=== PATIENT | male | born 2000 | race Caucasian/White ===

== ENCOUNTER 2021-09-20 09:29 | Emergency (ER) | payer OTHER, SELFPAY ==
[2021-09-20] VITALS (15 sets, daily range): BP systolic 128–146; BP diastolic 71–97; PULSE 73–131; RESP 11–24; TEMP 36.7; O2SAT 90–100
--- NOTE | ~2021-09-20 | XR_ITS ---
EXAMINATION: XR chest 1V portable DATE: 09/20/2021 11:01 INDICATION: Cough and congestion. Asthma. TECHNIQUE: A single frontal view of the chest was obtained on 2 radiographs. COMPARISON: Chest 2 views 11/05/2017 FINDINGS: The chest demonstrates clear lungs without pneumonia, pleural effusion, or pneumothorax. Th e heart size is normal. Pneumomediastinum is noted. IMPRESSION: 1. Pneumomediastinum. Reviewed, dictated and finalized at location A. ING CONSULTANT IMPRESSION: 1. Pneumomediastinum.
--- NOTE | 2021-09-20 09:58 | ECG_ITS ---
Measurements Intervals [place] Rate: 79 P: 73 SD: 136 QRS: -27 QRSD: 114 T: 42 QT: 361 QTc: 414 Interpretive Statements SINUS RHYTHM WITH MARKED SINUS ARRHYTHMIA INTRAVENTRICULAR CONDUCTION DELAY MINIMAL Q WAVES- INFERIOR LEADS BASELINE ARTIFACT- I, II, III, AVR, AVF, V1-V6 BORDERLINE ECG Electronically Signed On 09-20-2021 16:29:35 HIGH [employer]CHOOL GUIDANCE COUNSELOR by Demetrius Ashraf D.O.
--- NOTE | 2021-09-20 10:31 | ED.ASTHMA ---
HPI - Asthma General Chief Complaint: Asthma Stated Complaint: sob Time Seen by Provider: 09/20/21 10:15 Source: patient Mode of arrival: ambulatory Limitations: no limitations History of Present Illness HPI Narrative: This is a 21 year old male that presents to the ER for asthma exacerbation ongoing over the last couple of days. Reports cough, wheezing, shortness of breath and congestion. He was tested yesterday for coronavirus and it was negative. He has received 1 dose of the Covid vaccine. He is not currently on any preventative inhaled corticosteroid. He has been having to use his albuterol inhaler frequently without relief. His primary also started him on prednisone yesterday without relief. Denies fever or chest pain. Related Data Allergies Allergy/AdvReac Type Severity Reaction Status Date / Time Penicillins Allergy Hives Verified 09/20/21 09:55 Review of Systems Review of Systems: CONSTITUTIONAL: Denies fever ENT: Reports congestion. Denies sore throat CARDIOVASCULAR: Denies chest pain, or edema. RESPIRATORY: Reports cough and dyspnea. All systems reviewed & are unremarkable except as noted in HPI and below PMFSH Past Medical History Medical History (Updated 09/20/21 @ 12:15 by Sindi Johnson PA-C) History of asthma Social History Social History (Updated 09/20/21 @ 10:36 by Sindi Johnson PA-C) Smoking status: Never smoker Exam Narrative: GENERAL: Well-appearing, well-nourished, and in no acute distress. HEAD: Normocephalic, atraumatic. EYES: EOMI. ENT: Nares clear, no rhinorrhea or epistaxis. Mucous membranes moist. Oropharynx without tonsillar hypertrophy exudate or other lesions. Bilateral TMs pearly oneill non-bulging NECK: Supple. No adenopathy or masses. CHEST: No respiratory distress. Lung sounds diminished bilaterally with diffuse wheezing. No rales or rhonchi HEART: Regular rate and rhythm. No murmur heard. Normal peripheral pulses. EXTREMITIES: Normal range of motion. No edema. SKIN: Warm, dry, no rash. NEURO: No focal deficits. Alert and oriented x3. PSYCH: Normal mood and affect Course Consultations Consultation #1: Spoke with Dr. Bryson about patient and work-up. Patient will be transferred to [facility] for further evaluation and management Date: 09/20/21 Time: 12:00 Vital Signs Vital signs: Vital Signs Temperature 98.1 F 09/20/21 09:30 Pulse Rate 107 H 09/20/21 09:30 Respiratory Rate 24 H 09/20/21 09:30 Blood Pressure 146/71 H 09/20/21 09:30 Pulse Oximetry 91 09/20/21 09:30 Temperature 98.1 F 09/20/21 09:30 Pulse Rate 131 H 09/20/21 12:24 Respiratory Rate 23 H 09/20/21 12:24 Blood Pressure 136/97 H 09/20/21 12:24 Pulse Oximetry 90 09/20/21 13:02 MDM - Asthma MDM Narrative Medical decision making narrative: This is a 21-year-old male that presents to the emergency department for asthma exacerbation ongoing over the last couple of days. He is afebrile and nontoxic-appearing. Mildly tachycardic upon arrival. Oxygen saturation is remained normal on room air. Diffuse wheezing and diminished breath sounds noted on exam. Patient given hour-long nebulizer treatment, magnesium and steroid with improvement. Leukocytosis is noted to 17.2, likely due to recent steroid use. Patient did have a negative Covid and influenza screen yesterday. Chest x-ray shows a pneumomediastinum. EKG shows sinus tachycardia with sinus arrhythmia. Patient and family updated on case findings. Reports patient has a fresh work inspector at [facility] for his history of A. fib. Spoke with Dr. Bryson (patient's fresh work inspector) about patient and work-up. Patient will be transferred to [facility] for further evaluation and management Patient was eventually placed on 2L NC as his oxygen saturation was in the low 90s on room air Lab Data Attestation: I reviewed the patient's lab results. Result diagrams: 09/20/21 11:52 09/20/21 11:52 Labs: Lab Results
[2021-09-20] MEDS: ALBUTEROL SULFATE NEB 2.5 MG/0.5 ML INH 15 MG INHALATION (10:39)
[2021-09-20] MEDS: IPRATROPIUM BR 0.02% INH SOLN 0.5 MG/2.5 ML VIAL 1.5 MG INHALATION (10:39)
[2021-09-20] MEDS: methylPREDNISolone SOD SUCC 125 MG VIAL IV PUSH (10:43)
[2021-09-20] MEDS: MAGNESIUM SULF 2 GM/WATER 50ML 2 GM/50 ML BAG IVPB (10:46)
--- NOTE | 2021-09-20 10:58 | PC.NURSE ---
Patient states he was was influenza swabbed yesterday and was negative. Per KELSEY Delong, no retest needed.
[2021-09-20 11:59] LABS: Basophils Percent Auto 0.2 % (0.2-1.2); Eosinophils Percent Auto 0.1 % (0-4.4); Hematocrit 43.3 % (42.0-52.0); Hemoglobin 14.3 g/dL (14.0-18.0); Immature Granulocyte Absolute 0.06 K/mm3 (0.00-0.031); Immature Granulocyte Percent A 0.3 % (0-0.5); Lymphocytes Absolute Auto 0.94 K/mm3 (0.9-3.2); Lymphocytes Percent Auto 5.5 % (18.3-44.2); Mean Corpuscular Hemoglobin 29.6 pg (26-34); Mean Corpuscular Volume 89.6 fl (80-100); Mean Platelet Volume 10.8 fl (7.4-10.4); Monocytes Absolute Auto 0.6 K/mm3 (0.1-0.6); Monocytes Percent Auto 3.2 % (2.6-8.5); Neutrophils Absolute Auto 15.6 K/mm3 (1.3-6.7); Neutrophils Percent Auto 90.7 % (45.5-73.1); Platelet Count Result 231 k/mm3 (150-375); Red Blood Count 4.83 M/mm3 (4.6-6.20); White Blood Count 17.2 K/mm3 (4.5-10.0)
[2021-09-20 12:15] LABS: Alanine Aminotransferase 20 U/L (4-50); Albumin Level 4.9 g/dL (3.5-5.1); Alkaline Phosphatase 96 U/L (38-126); Anion Gap 12 mmol/L (8-16); Aspartate Amino Transferase 25 U/L (17-59); Bilirubin,Total 0.6 mg/dL (0.2-1.3); Blood Urea Nitrogen 15 mg/dL (9-20); Calcium 9.8 mg/dL (8.4-10.2); Carbon Dioxide 22 mmol/L (22-30); Chloride 102 mmol/L (98-107); Estimated CRCL calculation 139 ml/min; Estimated Glomerular Filt Rate > 60; Glucose 136 mg/dL (65-110); Lipase 38 U/L (23-300); Potassium 3.4 mmol/L (3.4-5.0); Sodium 136 mmol/L (137-145)
[2021-09-20 12:17] LABS: INR 0.9; Prothrombin Time 12.5 Seconds (11.1-14.7)
== END 2021-09-20 13:20 | disposition short-term general hospital (02) ==
PROVIDERS: Physician Assistant; Emergency Provider Emergency Medicine; PCP Pediatrics
DX: J98.2 Interstitial emphysema (principal); J45.909 Unspecified asthma, uncomplicated; I48.91 Unspecified atrial fibrillation; I45.9 Conduction disorder, unspecified; R94.31 Abnormal electrocardiogram [ECG] [EKG]
CPT/HCPCS: 36415; 71045; 80053; 83690; 85025; 85610; 85730; 93005; 96365; 96375; 99285; J2930; J3475

== ENCOUNTER 2023-02-02 21:37 | Emergency (ER) | payer OTHER, SELFPAY ==
--- NOTE | ~2023-02-02 | XR_ITS ---
EXAMINATION: XR chest 1V portable Exam Date/Time: 02/02/2023 21:52 CDT HISTORY: L chest pain/SOB. Hx asthma, afib Comparison: 09/20/2021. RESULT: Lines, tubes, and devices: None. Lungs and pleura: Clear. Cardiomediastinal silhouette: Normal. Other: No acute osseous or upper abdominal finding. IMPRESSION: No acute cardiopulmonary process. Reviewed, dictated and finalized at location K.
[2023-02-02 21:34] VITALS: BP 155/88; PULSE 116; RESP 23; TEMP 36.9; O2SAT 95
--- NOTE | 2023-02-02 21:37 | ECG_ITS ---
Measurements Intervals [place] Rate: 120 P: 74 MA: 112 QRS: 92 QRSD: 92 T: 48 QT: 319 QTc: 452 Interpretive Statements SINUS TACHYCARDIA WITH SHORT MA INTERVAL WITH OCCASIONAL SUPRAVENTRICULAR PREMATURE COMPLEXES BORDERLINE RIGHT AXIS DEVIATION [QRS AXIS > 90] MODERATE ST DEPRESSION [0.05+ mV ST DEPRESSION] ABNORMAL ECG Electronically Signed On 02-03-2023 14:38:18 CDT by Familia Krishnamurthy M.D.
[2023-02-02 21:52] LABS: Basophils Percent Auto 0.2 % (0.2-1.2); Eosinophils Percent Auto 0.1 % (0-4.4); Hematocrit 43.7 % (42.0-52.0); Hemoglobin 14.9 g/dL (14.0-18.0); Immature Granulocyte Absolute 0.01 K/mm3 (0.00-0.031); Immature Granulocyte Percent A 0.1 % (0-0.5); Lymphocytes Absolute Auto 1.39 K/mm3 (0.9-3.2); Lymphocytes Percent Auto 14.7 % (18.3-44.2); Mean Corpuscular HGB Conc 34.1 g/dl (32-36); Mean Corpuscular Hemoglobin 29.3 pg (26-34); Mean Corpuscular Volume 85.9 fl (80-100); Mean Platelet Volume 10.5 fl (7.4-10.4); Monocytes Absolute Auto 0.7 K/mm3 (0.1-0.6); Monocytes Percent Auto 7.5 % (2.6-8.5); Neutrophils Absolute Auto 7.3 K/mm3 (1.3-6.7); Neutrophils Percent Auto 77.4 % (45.5-73.1); Platelet Count Result 272 k/mm3 (150-375); Red Blood Count 5.09 M/mm3 (4.6-6.20); Red Cell Distribution Width 12.5 % (11.5-14.5); White Blood Count 9.5 K/mm3 (4.5-10.0)
[2023-02-02 22:03] LABS: Alanine Aminotransferase 29 U/L (6-50); Albumin Level 5.2 g/dL (3.5-5.1); Alkaline Phosphatase 84 U/L (38-126); Anion Gap 11 mmol/L (8-16); Aspartate Amino Transferase 29 U/L (17-59); Bilirubin,Total 0.7 mg/dL (0.2-1.3); Blood Urea Nitrogen 17 mg/dL (9-20); Calcium 9.8 mg/dL (8.4-10.2); Carbon Dioxide 22 mmol/L (22-30); Chloride 103 mmol/L (98-107); Estimated CRCL calculation 153 ml/min; Estimated Glomerular Filt Rate > 60; Glucose 137 mg/dL (65-110); Lipase 62 U/L (23-300); Potassium 3.9 mmol/L (3.4-5.0); Sodium 136 mmol/L (137-145)
[2023-02-02 22:04] LABS: Prothrombin Time 13.1 Seconds (11.1-14.7)
[2023-02-02 22:09] LABS: D Dimer < 0.27 ug/mL (<0.48)
[2023-02-02 22:14] LABS: Troponin I < 0.012 ng/mL (0.000-0.034)
--- NOTE | 2023-02-02 22:17 | PC.NURSE ---
Pt dad to the charge desk saying he is going to take his son to [place] because he has been waiting too long and is in too much pain. EDP aware. VSS. Pt is in pain but no acute distress.
== END 2023-02-02 22:21 | disposition left against medical advice (07) ==
LOC: ANHED 22:19
PROVIDERS: Emergency Provider General Practice
DX: R07.9 Chest pain, unspecified (principal)
CPT/HCPCS: 36415; 71045; 80053; 83690; 84484; 85025; 85380; 85610; 85730; 93005; 99199

== ENCOUNTER 2023-04-23 07:38 | Day surgery (SDC) | payer OTHER, SELFPAY ==
[2023-04-17 09:33] VITALS: BMI 22.9
[2023-04-17 14:38] VITALS: BMI 22.4
--- NOTE | 2023-04-22 15:32 | WPDANESEPPF ---
Anes - Initial Pre Proc Eval Procedure: Operation Date: 04/23/23 09:30 Proposed Procedures p Esophagogastroduodenoscopy - Bartolome Chahal MD Date/Time: 04/22/23 15:32 Surgeon: Bartolome Chahal MD Pre Op Diagnosis: Dysphagia Patient Data Age: 23 Gender: M Height: 1.83 m Weight: 75 kg Allergies Allergy/AdvReac Type Severity Reaction Status Date / Time Penicillins Allergy Hives Verified 04/23/23 08:13 Home Medications Medication Instructions Recorded Confirmed Type albuterol sulfate 90 mcg/actuation 1 inh inhalation Q4H 04/13/23 04/23/23 History aerosol inhaler cetirizine 10 mg capsule (Zyrtec) 10 mg PO DAILY PRN Allergy Symptoms 04/13/23 04/23/23 History fluticasone fur. 100 mcg-umeclid 1 inh inhalation DAILY 04/13/23 04/23/23 History 62.5 mcg-vilant 25 mcg inhalat.powder (Trelegy Ellipta) montelukast 10 mg tablet 10 mg PO DAILY 04/13/23 04/23/23 History Patient hx anesthesia problems: none Family hx anesthesia problems: none Results Review: All pre-operative results and documents have been reviewed as part of the pre-operative evaluation. [facility] Past Medical History Medical History (Updated 04/22/23 @ 15:33 by Cristi Lindsey MD) Allergies Engages in vaping GERD (gastroesophageal reflux disease) History of asthma Hx of atrial fibrillation without current medication Family History Family History (Updated 04/13/23 @ 09:59 by Racheal Crook MA) Father Asthma Grandparent Colon cancer Melanoma Skin cancer Grandparent Stomach cancer Skin cancer Social History Social History Years smoked: 5 Smoking status: Current every day smoker Tobacco type: e-cigarettes/vaping Alcohol intake: current Alcohol use details: socially Substance use: current Substance use type: marijuana Lack of Transportation: No Lack of Food: Never True Current Housing: I Have Housing Concerned About Future Housing: No Difficulty Paying Gas/Electric Bills: No Difficulty Paying for Meds: No Currently Unemployed: No Education: High School Diploma/GED Difficulty w/ Childcare or Family Care: No Living arrangements: with family Spiritual care concerns: No Anes - Eval Final PreProcedure Day of Procedure 04/22/23 15:32 Patient weight: normal Heart: regular rate and rhythm Lungs: clear to auscultation and normal air movement Airway: Mallampati scale class II Neurological: alert and oriented Last oral intake: >/= 8 hours ASA classification: II Emergent: no Anesthetic plan: proceed Anesthesia type and monitoring: general GIVS Results Review: All pre-operative results and documents have been reviewed as part of the pre-operative evaluation. Informed Consent: The patient's anesthetic plan and its attendant risks and benefits were discussed with the patient/family/POA. Questions were solicited and answers provided to the satisfaction of the patient/family/POA.
[2023-04-23 08:14] VITALS: BP 130/84; PULSE 98; RESP 16; TEMP 36.9; O2SAT 100
[2023-04-23] MEDS: LACTATED RINGERS 1,000 ML 150 ML IV CONT (08:23)
--- NOTE | 2023-04-23 09:39 | PM.HPGS ---
History of Present Illness History of Present Illness Consent: Risks, benefits, and alternatives have been discussed and questions answered. Patient agrees to proceed with procedure. Chief complaint: Dysphagia Narrative: Yaw Stewart is a 23 year old male with gerd only using tums as needed, few occasions sensation of solids getting stuck and will have to drink water. Never had egd Review of Systems Constitutional: Constitutional: Denies headache(s) and Denies weakness Eyes: Eyes: Denies blurry vision ENT: Reports Normal hearing present, Denies headache(s) and Denies neck pain Cardiovascular: Cardiovascular: Denies chest pain and Denies dyspnea Respiratory: Respiratory: Denies dyspnea Gastrointestinal: Gastrointestinal: Reports no additional gastrointestinal complaints Genitourinary: Genitourinary: Denies dysuria Musculoskeletal: Musculoskeletal: Denies neck pain Integumentary/Breasts: Skin/Breast: Denies dry skin Neurologic: Reports Normal hearing present, Denies headache(s) and Denies weakness Psychiatric: Psychiatric: Denies anxiety Endocrine: Endocrine: Denies change in body appearance Hematologic/Lymphatic: Hematologic/Lymphatic: Denies easy bleeding Allergic/Immunologic: Allergic/Immunologic: Denies urticaria PMFSH Past Medical History Medical History (Updated 04/22/23 @ 15:33 by Cristi Lindsey MD) Allergies Engages in vaping GERD (gastroesophageal reflux disease) History of asthma Hx of atrial fibrillation without current medication Family History Family History (Updated 04/13/23 @ 09:59 by Racheal Crook MA) Father Asthma Grandparent Colon cancer Melanoma Skin cancer Grandparent Stomach cancer Skin cancer Social History Social History Years smoked: 5 Smoking status: Current every day smoker Tobacco type: e-cigarettes/vaping Alcohol intake: current Alcohol use details: socially Substance use: current Substance use type: marijuana Lack of Transportation: No Lack of Food: Never True Current Housing: I Have Housing Concerned About Future Housing: No Difficulty Paying Gas/Electric Bills: No Difficulty Paying for Meds: No Currently Unemployed: No Education: High School Diploma/GED Difficulty w/ Childcare or Family Care: No Living arrangements: with family Spiritual care concerns: No Meds Home Medications and Allergies Home Medications Medication Instructions Recorded Confirmed Type albuterol sulfate 90 mcg/actuation 1 inh inhalation Q4H 04/13/23 04/23/23 History aerosol inhaler cetirizine 10 mg capsule (Zyrtec) 10 mg PO DAILY PRN Allergy Symptoms 04/13/23 04/23/23 History fluticasone fur. 100 mcg-umeclid 1 inh inhalation DAILY 04/13/23 04/23/23 History 62.5 mcg-vilant 25 mcg inhalat.powder (Trelegy Ellipta) montelukast 10 mg tablet 10 mg PO DAILY 04/13/23 04/23/23 History Allergies Allergy/AdvReac Type Severity Reaction Status Date / Time Penicillins Allergy Hives Verified 04/23/23 08:13 Vital Signs Vital Signs - 24 hr 04/23/23 08:14 Temperature 98.4 F Pulse Rate 98 Respiratory Rate 16 Blood Pressure 130/84 Pulse Oximetry 100 Oxygen Delivery Room Air Exam Const: General: comfortable and no acute distress HENMT: Face/Nose/Sinus: Normal nares present Eyes: General: appearance normal, both eyes and all related structures Neck: Neck: no JVD Resp: Auscultation: clear to auscultation bilaterally Cardio: Rate: regular rate Rhythm: regular rhythm GI: Inspection: non-distended GI Palp: Yes Soft to palpation Skin: General skin exam: normal color Neuro: General: gait normal Speech: normal speech Extrem: General: normal to inspection Psych: Mental Status: mental status grossly normal Assessment and Plan Assessment and plan (1) GERD (gastroesophageal reflux disease): Code(s): K21.9 - Gastro-esophageal reflux dis
[2023-04-23 09:59] VITALS: BP 123/99; PULSE 65; RESP 16; O2SAT 100
--- NOTE | 2023-04-23 10:04 | WPDANESPN ---
Anes - Prog Note Post-Op Date/Time: 04/23/23 10:04 Cardiovascular status: normal Respiratory status: normal Airway patency: baseline Mental status: baseline Post-Op hydration status: normal Vital Signs: Last Vital Signs Temp 36.9 C 04/23/23 08:14 Pulse 98 04/23/23 08:14 Resp 16 04/23/23 08:14 BP 130/84 04/23/23 08:14 Pulse Ox 100 04/23/23 08:14 O2 Del Method Room Air 04/23/23 08:14 Pain Score (VAS): 0 I/O: Intake & Output 04/22/23 04/23/23 04/23/23 23:59 07:59 15:59 Intake Total 700 Balance 700 Post-procedural complaints: none Patient Feedback: Patient satisfied with anesthetic care.
[2023-04-23 10:09] VITALS: BP 113/89; PULSE 60; RESP 16; O2SAT 100
[2023-04-23 10:19] VITALS: BP 112/90; PULSE 60; RESP 16; O2SAT 100
== END 2023-04-23 10:45 | disposition home or self-care (01) ==
PROVIDERS: PCP Internal Medicine; Visit Provider Internal Medicine Gastroenterology
PROC: 0DJ08ZZ Inspection of Upper Intestinal Tract, Via Natural or Artificial Opening Endoscopic (ICD-10-PCS; CPT 43235; principal; 2023-04-23 09:30)
DX: K21.9 Gastro-esophageal reflux disease without esophagitis (principal)
CPT/HCPCS: 43239

== ENCOUNTER 2023-04-23 08:00 | Outpatient (NON) | payer OTHER, SELFPAY | END 2023-04-23 08:01 | disposition home or self-care (01) | LOC: ANHLAB 04-24 07:59 | PROVIDERS: PCP Internal Medicine; Visit Provider Internal Medicine Gastroenterology | DX: K21.9 Gastro-esophageal reflux disease without esophagitis (principal) | CPT/HCPCS: 88305 ==